=== PATIENT | male | born 1975 | race Caucasian/White ===

== ENCOUNTER 2017-05-20 19:58 | Emergency (ER) | payer BC ==
[2017-05-20] MEDS: MORPHINE 2 MG/ML 1ML SYRINGE IV PRN ×4 (20:26→23:44)
[2017-05-20] MEDS ORDERED: KETOROLAC 30 MG/ML VIAL (J1885) IV ONE (20:30)
[2017-05-20] MEDS ORDERED: ONDANSETRON 4MG/2ML VIAL (J2405) IV ONE (20:30)
[2017-05-20 20:50] LABS: BASO # 0.1 K/mm3 (0.0-0.2); BASO % 0.8 % (0.0-1.0); EOS # 0.1 K/mm3 (0.0-0.50); EOS % 0.8 % (0.0-3.0); LARGE UNSTAINED CELL # 0.2 K/mm3 (0.0-0.4); LARGE UNSTAINED CELL % 2.2 % (0.0-4.0); LYMPH # 2.2 K/mm3 (1.5-4.5); LYMPH % 26.9 % (24.0-44.0); MEAN CORPUSCULAR HEMOGLOBIN 30.1 pg (27.0-33.0); MEAN CORPUSCULAR HGB CONC 35.9 g/dl (32.0-36.5); MONO # 0.4 K/mm3 (0.0-0.8); MONO % 5.6 % (0.0-5.0); NEUTROPHILS # 4.8 K/mm3 (1.8-7.7); NEUTROPHILS % 63.8 % (36.0-66.0); PLATELET COUNT, AUTOMATED 298 k/mm3 (150-450); RED CELL DISTRIBUTION WIDTH 12.2 % (11.5-14.5); WHITE BLOOD COUNT 7.5 K/mm3 (4.0-10.0)
--- NOTE | 2017-05-20 21:05 | REP ---
Clinical: Right flank pain. Findings: Mild acute right-sided obstructive uropathy with hydroureteronephrosis and minimal periureteral stranding secondary to a 2 mm calculus at the ureterovesicle junction (image 129). 1 cm right renal hypodensity may represent cyst. Left kidney and ureter and bladder appear normal. Liver, spleen, pancreas, gallbladder, and bilateral adrenal glands are normal for noncontrast evaluation. The enteric system is without obstruction or acute inflammatory process. Normal terminal ileum and appendix identified in the right lower quadrant. Pelvis demonstrates normal bladder and age appropriate prostate/seminal vesicles. No ascites. No free air. No adenopathy. Abdominal aorta without aneurysm. Musculoskeletal structures demonstrate age-related changes. Impression: 1. Mild acute right-sided obstructive uropathy with a 2 mm calculus at the ureterovesicle junction. Small right renal hypodensity may represent cyst and can be followed by ultrasound if necessary. 2. Remainder of the abdomen and pelvis is unremarkable. Signed by Scooby Patel MD 05/20/2017 08:57 P
[2017-05-20 21:15] LABS: ALBUMIN 4.5 GM/DL (3.2-5.2); ALBUMIN/GLOBULIN RATIO 1.61 (1.00-1.93); ALKALINE PHOSPHATASE 68 U/L (45-117); ALT/SGPT 57 U/L (12-78); ANION GAP 13 MEQ/L (8-16); AST/SGOT 36 U/L (15-37); BILIRUBIN,DIRECT 0.1 MG/DL (0.0-0.2); BILIRUBIN,TOTAL 0.6 MG/DL (0.2-1.0); BLOOD UREA NITROGEN 16 MG/DL (7-18); CALCIUM LEVEL 9.2 MG/DL (8.5-10.1); CARBON DIOXIDE LEVEL 21 MEQ/L (21-32); CHLORIDE LEVEL 105 MEQ/L (98-107); CREATININE FOR GFR 1.21 MG/DL (0.70-1.30); GLOMERULAR FILTRATION RATE > 60.0 (>60); GLUCOSE, FASTING 139 MG/DL (70-105); POTASSIUM SERUM 3.6 MEQ/L (3.5-5.1); SODIUM LEVEL 139 MEQ/L (136-145); TOTAL PROTEIN 7.3 GM/DL (6.4-8.2)
[2017-05-20 22:15] LABS: INR 1.01
[2017-05-20] MEDS ORDERED: ZOFR4TAB3 PO (23:43)
[2017-05-20] MEDS ORDERED: FLOM5CAP PO (23:43)
[2017-05-20] MEDS ORDERED: PERC5TAB12 PO (23:43)
[2017-05-20] MEDS ORDERED: OXYCODONE/APAP 5MG/325MG(BULK FOR ED) 1 TABLET PO ONE (23:45)
[2017-05-20] MEDS ORDERED: TAMSULOSIN 0.4 MG CAP PO ONE (23:45)
[2017-05-20 23:51] VITALS: BP 136/83
--- NOTE | 2017-05-21 14:20 | ED PDOC ---
Post-Departure Follow-Up certified letter sent to patient as she has no PCP Cristy Mir MD May 21, 2017 14:20
[2017-05-22] MEDS ORDERED: PERC5TAB12 PO (20:13)
[2017-05-22] MEDS ORDERED: FLOM5CAP PO (20:13)
[2017-05-22] MEDS ORDERED: ZOFR20TA PO (20:13)
== END 2017-05-21 00:09 | disposition home or self-care (01) ==
LOC: M ED 19:58
DX: N20.1 Calculus of ureter (principal); Z79.899 Other long term (current) drug therapy
CPT/HCPCS: 74176; 80048; 80076; 81001; 83690; 85025; 85610; 87086; 96374; 96375; 96376; 99283; J1885; J2405

== ENCOUNTER 2017-05-22 16:34 | Day surgery (SDC) | payer BC ==
[~2017-05-22] VITALS: Ht 170.2 cm; Wt 84.0 kg
[~2017-05-22 16:34] MED LIST: FLOM5CAP PO; PERC5TAB12 PO; ZOFR4TAB3 PO
[2017-05-22] MEDS ORDERED: MORPHINE 4 MG/ML 1ML SYRINGE IV ONE (17:15)
[2017-05-22] MEDS ORDERED: NS 1,000 ML IV ONE (17:15)
[2017-05-22] MEDS ORDERED: ONDANSETRON 4MG/2ML VIAL (J2405) IV ONE (17:15)
[2017-05-22 17:22] LABS: BASO % 0.3 % (0.0-1.0); EOS % 0.3 % (0.0-3.0); LARGE UNSTAINED CELL # 0.1 K/mm3 (0.0-0.4); LARGE UNSTAINED CELL % 0.4 % (0.0-4.0); LYMPH # 0.5 K/mm3 (1.5-4.5); LYMPH % 4.4 % (24.0-44.0); MEAN CORPUSCULAR HEMOGLOBIN 30.2 pg (27.0-33.0); MEAN CORPUSCULAR HGB CONC 35.3 g/dl (32.0-36.5); MEAN CORPUSCULAR VOLUME 85.7 fl (80.0-96.0); MONO # 0.5 K/mm3 (0.0-0.8); MONO % 4.5 % (0.0-5.0); NEUTROPHILS # 9.9 K/mm3 (1.8-7.7); NEUTROPHILS % 90.1 % (36.0-66.0); PLATELET COUNT, AUTOMATED 216 k/mm3 (150-450); RED CELL DISTRIBUTION WIDTH 11.7 % (11.5-14.5)
[2017-05-22 17:41] LABS: ALBUMIN 4.1 GM/DL (3.2-5.2); ALBUMIN/GLOBULIN RATIO 1.28 (1.00-1.93); ALKALINE PHOSPHATASE 65 U/L (45-117); ALT/SGPT 39 U/L (12-78); ANION GAP 7 MEQ/L (8-16); AST/SGOT 21 U/L (15-37); BILIRUBIN,DIRECT 0.2 MG/DL (0.0-0.2); BILIRUBIN,TOTAL 0.7 MG/DL (0.2-1.0); BLOOD UREA NITROGEN 14 MG/DL (7-18); CALCIUM LEVEL 8.8 MG/DL (8.5-10.1); CARBON DIOXIDE LEVEL 27 MEQ/L (21-32); CHLORIDE LEVEL 100 MEQ/L (98-107); CREATININE FOR GFR 1.12 MG/DL (0.70-1.30); GLOMERULAR FILTRATION RATE > 60.0 (>60); GLUCOSE, FASTING 125 MG/DL (70-105); POTASSIUM SERUM 4.1 MEQ/L (3.5-5.1); SODIUM LEVEL 134 MEQ/L (136-145); TOTAL PROTEIN 7.3 GM/DL (6.4-8.2)
--- NOTE | 2017-05-22 18:10 | REPUSA ---
Clinical history: Right upper quadrant pain. Findings: The pancreas is limited in visualization secondary to overlying bowel gas, but appears eleuterio sly unremarkable. The liver demonstrates uniform echotexture and echogenicity, with no mass lesions. The gallbladder is unremarkable. The common bile duct measures 4 mm and is within normal limits. The right kidney measures 11.1 cm in length and is within normal limits. There is no ascites. Impression: Unremarkable ultrasound examination of the right upper quadrant.
[2017-05-22] MEDS ORDERED: KETOROLAC 30 MG/ML VIAL (J1885) As Ordered ONE (18:43)
[2017-05-22] MEDS ORDERED: KETOROLAC 30 MG/ML VIAL (J1885) IV ONE (18:45)
[2017-05-22] MEDS ORDERED: NS 1,000 ML IV SCH (18:58)
--- NOTE | 2017-05-22 19:03 | REP ---
Clinical: Ureterolithiasis. Comparison: CT dated 05/20/2017. Findings: Single supine view of the abdomen and pelvis demonstrate calcifications in the pelvis which correlate to phleboliths when compared to CT. The right ureterovesical junction stone is not definitively identified on current radiograph. Correlation with physical examination and urinalysis may be warranted. Bowel gas pattern is nonspecific. No organomegaly. Skeletal structures are intact. Impression: Known 2 mm right UVJ stone by recent CT is not identified and cannot be discerned on current examination. Signed by Scooby Patel MD 05/22/2017 06:55 P
[2017-05-22] MEDS ORDERED: ZOFR20TA PO (20:13)
[2017-05-22] MEDS ORDERED: PERC5TAB12 PO (20:13)
[2017-05-22] MEDS ORDERED: FLOM5CAP PO (20:13)
[2017-05-22] MEDS ORDERED: LIDOCAINE 2% INJ 100 MG/5 ML SDV (FOR ANES.) As Ordered ONE (21:43)
[2017-05-22] MEDS ORDERED: fentaNYL 100 MCG/2 ML INJECTION (J3010) As Ordered ONE (21:43)
[2017-05-22] MEDS ORDERED: MIDAZOLAM INJ 2 MG/2 ML VIAL (J2250) As Ordered ONE (21:43)
[2017-05-22] MEDS ORDERED: PROPOFOL 200 MG/20 ML VIAL As Ordered ONE (21:43)
[2017-05-22] MEDS ORDERED: ONDANSETRON 4MG/2ML VIAL (J2405) As Ordered ONE (21:43)
[2017-05-22] MEDS ORDERED: CONRAY-60 60% 50ML VIAL (Q9961) As Ordered ONE (21:52)
[2017-05-22] MEDS ORDERED: CIPROFLOXACIN/D5W 400 MG/200 ML BAG (J0744) As Ordered ONE (21:52)
--- NOTE | 2017-05-22 22:47 | HPEPDOC ---
General Date of Admission 05/22/17 Attending Physician: EDGAR AQUINO MD Chief Complaint The patient is a 42-year-old male admitted with a reason for visit of Distal Right Uretheral Stone. Source: Patient, Family Exam Limitations: No limitations Timing/Duration: Day(s) Severity: Severe History of Present Illness 42M with no h/o kidney stones or any known urologic history. He developed acute onset right flank pain 2 days ago while on vacation in the area. He originally presented to [facility] ER where a CT scan was done showing a 2 mm calculus at the right ureterovesical junction. Patient was discharged from the ED with a trial of medical expulsive therapy. However the patient returned today to the ER reporting little relief or improvement in the pain. He reports it has been intermittent but that when the pain occurs it is intolerable even with the prescribed narcotic pain medications. He has not had any fever, or any other significant associated symptoms. Home Medications Scheduled Tamsulosin Hydrochloride (Flomax) 0.4 Mg Cap, 0.4 MG PO DAILY, (Reported) Scheduled PRN Ondansetron HCl (Zofran) 4 Mg Tab, 4 MG PO Q4H PRN for NAUSEA, (Reported) Oxycodone/Acetaminophen (Percocet 5-325 mg) 1 Tab Tab, 1 TAB PO Q6H PRN for PAIN , (Reported) Allergies Coded Allergies: No Known Allergies (Unverified , 05/20/17) Past Medical History Medical History No signficant PMH Surgical History None Family History Significant Family History: Noncontributory Social History * Smoker: quit greater than 1 year Alcohol: occationally Drugs: denies Review of Symptoms Constitutional: Denies: Chills, Fever, Night Sweats Eyes: Denies: Pain, Vision change ENT: Denies: Head Aches, Ear Pain, Dysphagia Skin: Denies: Rash, Lesions, Breakdown Pulmonary: Denies: Dyspnea, Cough Cardiovascular: Denies: Chest Pain, Palpitations, Orthopnea, Paroxysmal Noc. Dyspnea, Lt Headedness Gastrointestinal: Denies: Nausea, Vomiting, Abdominal Pain, Diarrhea Genitourinary: Denies: Dysuria, Frequency, Incontinence, Retention Hematologic: Denies: Bruising, Bleeding Excessively Musculoskeletal: Denies: Neck Pain, Back Pain, Joint Pain, Muscle Pain, Spasms Neurological: Denies: Weakness, Numbness, Change in speech, Confusion Psych: Reports: Mood Normal, Denies: Depression, Memory Issues Physical Examination General Exam: Positive: Alert, No Acute Distress Eye Exam: Positive: PERRLA, Conjunctiva & lids normal, EOMI, Negative: Sclera icteric ENT Exam: Positive: Atraumatic, Mucous membr. moist/pink, Pharynx Normal Neck Exam: Positive: Supple, Negative: JVD, thyromegaly Chest Exam: Positive: Clear to auscultation, Normal air movement Heart Exam: Positive: Rate Normal, Regular Rhythm, Normal S1, Normal S2, Negative: Murmurs, Rubs Telemetry: Positive: No significant arrhythmia Abdomen Exam: Positive: Normal bowel sounds, Soft, Tenderness, Negative: Hepatospenomegaly Extremity Exam: Positive: Normal pulses, Negative: Clubbing, Cyanosis, Edema Skin Exam: Positive: Nl turgor and temperature, Negative: Breakdown, Lesion Neuro Exam: Positive: Normal Gait, Normal Speech, Cranial Nerves 3-12 NL, Reflexes 2+ Psych Exam: Positive: Mental status NL, Mood NL, Oriented x 3 Vital Signs Vital Signs Date Time Temp Pulse Resp B/P (MAP) Pulse Ox O2 Delivery O2 Flow Rate FiO2 05/22/17 20:41 98.7 05/22/17 20:34 102 18 94 05/22/17 16:35 Room Air Laboratory Data Labs 24H Laboratory Tests 2 05/22/17 17:08: White Blood Count 11.0H, Red Blood Count 5.55, Hemoglobin 16.8, Hematocrit 47.5 , Mean Corpuscular Volume 85.7, Mean Corpuscular Hemoglobin 30.2, Mean Corpuscular Hemoglobin Concent 35.3, Red Cell Distribution Width 11.7, Platelet Count 216, Neutrophils (%) (Auto) 90.1H, Lymphocytes (%) (Auto) 4.4L, Monocytes (%) (Auto) 4.5, Eosinophils (%) (Auto) 0.3, Basophils (%) (Auto) 0.3, Neutrophils # (Auto) 9.9H, Lymphocytes # (Auto) 0.5L, Monocytes # (Auto) 0.5, Eosinophils # (Auto) 0.0, Basophils # (Auto) 0.0, Large Unclassified Cells % 0.4 , Large Unclassified Cells # 0.1, Anion Gap 7L, Glomerular Filtration Rate > 60.0, Calcium Level 8.8, Aspartate Amino Transf (AST/SGOT) 21, Alanine Aminotransferase (ALT/SGPT) 39, Alkaline Phosphatase 65, Total Bilirubin 0.7, Direct Bilirubin 0.2, Total Protein 7.3, Albumin 4.1, Albumin/Globulin Ratio 1.28, Lipase 129 05/22/17 18:50: Urine Appearance CLEAR, Urine Color STRAW, Urine pH 6.0, Urine Specific [place] 1.004, Urine Protein NEGATIVE, Urine Glucose (UA) NEGATIVE, Urine Ketones 1+H, Urine Urobilinogen 0.2, Urine Bilirubin NEGATIVE, Urine Leukocyte Esterase NEGATIVE, Urine Blood 3+H, Urine Nitrite NEGATIVE, Urine WBC (Auto) 0, Urine RBC (Auto) 4H, Urine Hyaline Casts (Auto) 0, Urine Bacteria (Auto) NEGATIVE, Urine Squamous Epithelial Cells 0, Urine Sperm (Auto) CBC/BMP Laboratory Tests 05/22/17 17:08 Red Blood Count 5.55, Mean Corpuscular Volume 85.7, Mean Corpuscular Hemoglobin 30.2, Mean Corpuscular Hemoglobin Concent 35.3, Red Cell Distribution Width 11.7 , Neutrophils (%) (Auto) 90.1 H, Lymphocytes (%) (Auto) 4.4 L, Monocytes (%) ( Auto) 4.5, Eosinophils (%) (Auto) 0.3, Basophils (%) (Auto) 0.3, Neutrophils # ( Auto) 9.9 H, Lymphocytes # (Auto) 0.5 L, Monocytes # (Auto) 0.5, Eosinophils # ( Auto) 0.0, Basophils # (Auto) 0.0 Microbiology Microbiology 05/22/17 Urine Culture, Received Pending RAD Interpretation STUDY: CT done at last admission showed 2 mm right UVJ stone Assessment/Plan Distal right ureteral s/p failed trial of medical expulsive therapy Plan / VTE VTE Prophylaxis Ordered?: Yes VTE Exclusion Pharmacological: At Low Risk for VTE Plan Plan to OR for cystoscopy, right ureteral stent placement, possible right ureteroscopy Disposition will likely D/C home after procedure IVF: Initiate Diet: Make NPO Activity: Continue Current EDGAR AQUINO MD May 22, 2017 22:47
--- NOTE | 2017-05-22 23:02 | ROOPDOC ---
[facility] Report Of Operation Report of Operation DATE OF PROCEDURE: 05/22/17 PREPROCEDURE DIAGNOSES: Distal right ureteral stone. POSTPROCEDURE DIAGNOSES: Same. PROCEDURE: Cystoscopy, basketing of ureteral stone, right retrograde pyelogram. SURGEON: Edgar Lopez MD EMERGENCY DEPT TECH: None ANESTHESIA: Laryngeal mask airway. ESTIMATED BLOOD LOSS: Approximately 0 mL. COMPLICATIONS: None. REMARKS: Stone visualized protruding from ureteral orifice. Stone basket extracted without ureteroscopy. PROCEDURE NOTE: This is a 42-year-old male who was traveling in the area when he developed acute right flank pain. He presented to [facility] emergency department where a CAT scan demonstrated a 2 mm stone at the right ureterovesical junction. The patient was discharged from the emergency department with a trial of medical expulsive therapy. However the pain continued intermittently and with severe intensity which was not responding to the pain medications he was prescribed. The patient presented back to the emergency department urology was consulted and a decision was made to proceed with surgical intervention the patient and his were counseled thoroughly on all of the various treatment options going forward including the risks benefits and alternatives of each option they elected to proceed with the above listed procedures. All the necessary preoperative arrangements are made. DESCRIPTION OF PROCEDURE: The patient was transferred from the emergency department up to the preoperative holding area. Full written informed consent was obtained. The patient was evaluated by the anesthesia service, identified, and brought back to the operating room. Once inside the operating room laryngeal mask airway anesthesia was initiated. The patient was placed into the dorsal lithotomy position. His genitalia were prepped and draped in the usual sterile manner. We began the procedure by advancing a 22 Belgian rigid cystoscope through the urethra and into the bladder. There were no difficulties in doing so and the urethra appeared entirely normal. Cystoscopic examination of the interior of the bladder demonstrated no abnormalities. Bilateral ureteral orifices were visualized and orthotopic position. A calculus could be visualized protruding out of the right ureteral orifice. The calculus was still stuck at the ureterovesical junction but could be visualized without performing ureteroscopy. A stone basket was advanced through the cystoscope and was used to capture the stone and pull it out of the ureter. This was done with very little manipulation of the ureter or ureteral orifice. The stone was sent for composition analysis. Next we advanced a 5 Belgian Pollack catheter through the cystoscope and into the right ureteral orifice. Contrast was injected through the Pollack catheter up the right ureter and into the right kidney during which time fluoroscopic images were taken. The resulting right retrograde pyelogram did not demonstrate any further filling defects in the right ureter. The course and caliber of the right ureter appeared normal without any significant dilatation. At this point it appeared there were no other stones. The bladder was drained through the cystoscope sheath. The cystoscope and Pollack catheter were removed. The patient was placed back into this is supine position. Anesthesia was discontinued and the patient was transferred to the PACU in stable condition. The patient had been hemodynamically stable throughout the case. DISPOSITION: The patient will be discharged from the hospital today after the procedure. No ureteral stent was necessary. However the patient would likely benefit from evaluation by urologist once he gets back to his home area for possible counseling and evaluation for preventative measures to avoid future stones. EDGAR LOPEZ MD May 22, 2017 23:02
[2017-05-22 23:15] VITALS: BP 142/89
[2017-05-22] MEDS ORDERED: LR 1,000 ML IV SCH (23:15)
[2017-05-22] MEDS ORDERED: ONDANSETRON 4MG/2ML VIAL (J2405) IV PRN (23:15)
[2017-05-22] MEDS ORDERED: fentaNYL 100 MCG/2 ML INJECTION (J3010) IV PRN (23:15)
[2017-05-22] MEDS ORDERED: PERCOCET 5MG/325MG TAB PO PRN (23:15)
[2017-05-22] MEDS ORDERED: D5W/0.45% SODIUM CHLORIDE 1,000 ML IV SCH (23:30)
[2017-05-22 23:55] VITALS: BP 140/91
--- NOTE | 2017-05-23 07:07 | REP ---
Clinical: Right ureteral stone. Technique: Intraoperative fluoroscopic imaging. Findings: Multiple intraoperative fluoroscopic images demonstrate retrograde opacification of the right renal collecting system. Mild hydronephrosis to the renal pelvis and calyces noted. No obvious filling defect is identified. Total fluoroscopic time 3 seconds. Impression: No obvious right-sided filling defects appreciated. Signed by Scooby Patel MD 05/23/2017 06:58 A
== END 2017-05-23 00:10 | disposition home or self-care (01) ==
LOC: M ED 16:34 → M SDC 21:30 → M PED 23:10 → M SDC 05-23 00:10
PROVIDERS: ATTEND Urology Pediatric Urology
DX: N20.1 Calculus of ureter (principal); R06.09 Other forms of dyspnea; J44.9 Chronic obstructive pulmonary disease, unspecified; E66.9 Obesity, unspecified; Z87.81 Personal history of (healed) traumatic fracture
CPT/HCPCS: 52352; 74000; 74420; 76705; 80048; 80076; 81001; 82360; 83690; 85025; 87086; 88300; 96374; 96375; 99285; C1726; C2617; J0744; J1885; J2250; J2405; J3010; Q9961